=== PATIENT | female | born 1995 | race Two or more races ===

== ENCOUNTER 2017-01-07 04:24 | Emergency (ER) | payer OTHER ==
[~2017-01-07] VITALS: Ht 162.6 cm; Wt 61.2 kg
[2017-01-07 04:24] VITALS: BP 132/74
== END 2017-01-07 05:56 ==
LOC: ER 04:26
DX: S50.12XA Contusion of left forearm, initial encounter (principal); S60.222A Contusion of left hand, initial encounter; V49.40XA Driver injured in collision with unspecified motor vehicles in traffic accident, initial encounter; Y93.89 Activity, other specified; Y92.413 State road as the place of occurrence of the external cause; Y99.8 Other external cause status
CPT/HCPCS: 73090; 73130; 99284; A4606; Z7610